=== PATIENT | female | born 1955 | race Caucasian/White ===

== ENCOUNTER → 2021-07-20 | Outpatient (CLI) | payer OTHER | END | disposition home or self-care (01) | LOC: RAD 08:29 | PROVIDERS: ATTEND Chiropractor | DX: M25.512 Pain in left shoulder (principal); M25.511 Pain in right shoulder | CPT/HCPCS: 73221 ==

== ENCOUNTER 2021-07-22 10:28 | Outpatient (CLI) | payer OTHER | END 2021-07-22 10:43 | disposition home or self-care (01) | LOC: MAMO-SONO 10:28 | PROVIDERS: ATTEND Radiology Radiation Oncology | DX: R92.1 Mammographic calcification found on diagnostic imaging of breast (principal); C50.112 Malignant neoplasm of central portion of left female breast; N64.59 Other signs and symptoms in breast ==